=== PATIENT | male | born 1995 | race Two or more races ===

== ENCOUNTER 2021-05-26 09:40 | Emergency (ER) | payer MEDICAID ==
[~2021-05-26] VITALS: Ht 180.3 cm; Wt 95.5 kg
[2021-05-26 09:41] VITALS: BP 118/65
== END 2021-05-26 11:41 | disposition home or self-care (01) ==
LOC: EMS 09:40
DX: A05.9 Bacterial foodborne intoxication, unspecified (principal); R19.7 Diarrhea, unspecified; R11.2 Nausea with vomiting, unspecified
CPT/HCPCS: 99281; Z7502